=== PATIENT | male | born 1980 | race Caucasian/White ===

== ENCOUNTER → 2017-09-17 12:30 | Outpatient (CLI) | payer SELFPAY ==
[2017-09-17 13:33] LABS: BASOPHILS 0.2 % (0-2); HEMATOCRIT 34.7 % (42.0-54.0); IMMATURE GRANULOCYTES 2.1 % (0-5); LYMPHOCYTES 23.8 % (15-50); MCH 27.4 pg (26.0-34.0); MCHC 31.7 g/dL (31.0-37.0); MCV 86.3 fL (80.0-100.0); MONOCYTES 7.8 % (2-11); NEUTROPHILS 65.1 % (40-80); PLATELET COUNT 472 10x3/uL (130-400); RBC 4.02 10x6/uL (4.20-6.10); RDW 14.4 % (11.5-14.5)
[2017-09-17 14:57] LABS: ERYTHROCYTE SEDIMENTATION RATE 32 mm/hr (0-15)
== END | disposition home or self-care (01) ==
LOC: D.LABREF 12:30
PROVIDERS: Orthopaedic Surgery
DX: M86.172 Other acute osteomyelitis, left ankle and foot (principal)

== ENCOUNTER → 2017-09-18 11:39 | Outpatient (CLI) | payer SELFPAY | END | disposition home or self-care (01) | LOC: D.MRI 11:39 | DX: M79.652 Pain in left thigh (principal) ==